=== PATIENT | male | born 1985 | race Caucasian/White ===

== ENCOUNTER → 2019-01-01 | Outpatient (REF) | payer BC | LOC: M LAB REF 16:57 | PROVIDERS: ATTEND Physician Assistant Medical | DX: R19.7 Diarrhea, unspecified (principal) ==

== ENCOUNTER 2019-11-22 13:36 | Emergency (ER) | payer BC ==
[~2019-11-22] VITALS: Ht 188 cm; Wt 138.6 kg
[2019-11-22 13:37] VITALS: BP 141/77
[2019-11-22 14:11] LABS: BASO # 0.1 10^3/uL (0.0-0.2); BASO % 0.8 % (0.0-1.0); EOS # 0.2 10^3/uL (0.0-0.5); EOS % 2.4 % (0.0-3.0); HEMATOCRIT 45.1 % (42.0-52.0); HEMOGLOBIN 14.6 g/dl (13.5-17.5); LYMPH # 1.8 10^3/uL (1.5-5.0); LYMPH % 29.6 % (24.0-44.0); MEAN CORPUSCULAR HEMOGLOBIN 28.9 pg (27.0-33.0); MEAN CORPUSCULAR HGB CONC 32.4 g/dl (32.0-36.5); MEAN CORPUSCULAR VOLUME 89.1 fl (80.0-96.0); MONO # 0.5 10^3/uL (0.0-0.8); MONO % 8.1 % (0.0-5.0); NEUTROPHILS # 3.7 10^3/uL (1.5-8.5); NEUTROPHILS % 58.8 % (36.0-66.0); PLATELET COUNT, AUTOMATED 205 10^3/uL (150-450); RED BLOOD COUNT 5.06 10^6/uL (4.30-6.10); WHITE BLOOD COUNT 6.2 10^3/uL (4.0-10.0)
[2019-11-22 14:38] LABS: BLOOD UREA NITROGEN 15 MG/DL (7-18); CALCIUM LEVEL 9.5 MG/DL (8.5-10.1); CARBON DIOXIDE LEVEL 28 MEQ/L (21-32); CHLORIDE LEVEL 111 MEQ/L (98-107); CREATININE FOR GFR 0.88 MG/DL (0.70-1.30); GLOMERULAR FILTRATION RATE > 60.0 (>60); GLUCOSE, FASTING 90 MG/DL (70-100); POTASSIUM SERUM 4.5 MEQ/L (3.5-5.1); SODIUM LEVEL 144 MEQ/L (136-145)
[2019-11-22] MEDS ORDERED: FLOM0.4C39 PO (15:19)
[2019-11-22] MEDS ORDERED: KETO10TAB PO (15:19)
--- NOTE | 2019-11-23 07:29 | REP ---
CT ABDOMEN AND PELVIS WITHOUT IV OR ORAL CONTRAST: RENAL STONE PROTOCOL. HISTORY: Left flank pain. Question stone. 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 The lung bases are clear on axial CT images. The liver and spleen are normal in size homogeneous in texture. There is an accessory splenule inferiorly. No adrenal lesion is seen. No abnormality is noted in the pancreas. The gallbladder is small and contracted but otherwise unremarkable. The kidneys are morphologically intact. No hydronephrosis is seen. There is no discernible intrarenal calculus. However, there is evidence of a calculus in the distal ureter, 2-3 cm above the ureterovesical junction. There is periureteral edema at the level of the stone. The stone measures 4.3 mm in greatest diameter. There is minimal fullness in the distal ureter above the stone. No other ureteral calculus is observed. No bladder calculus is seen. A normal appendix is seen in the right lower abdomen. Small and large intestinal bowel loops are unremarkable. No abdominal wall defect is seen. No bony destructive lesion. IMPRESSION: There is a 4 mm calculus in the left distal ureter, 2-3 cm above the ureterovesical junction. There is no evidence of upper tract hydronephrosis. No other urinary tract calculus is seen. Electronically Signed by Saul Berkowitz MD 11/23/2019 08:53 A
== END 2019-11-22 15:35 | disposition home or self-care (01) ==
LOC: M ED 13:36
DX: N21.1 Calculus in urethra (principal)

== ENCOUNTER 2024-07-08 10:09 | Inpatient (IN) | payer OTHER ==
[~2024-07-08] VITALS: Ht 185.4 cm; Wt 162.2 kg
[2024-07-08] VITALS (7 sets, daily range): BP systolic 127–161; BP diastolic 81–87; TEMP 97.3–97.7; O2SAT 96–99
[~2024-07-08 10:09] MED LIST: FLOM0.4C39 PO; KETO10TAB PO
[2024-07-08] MEDS: ONDANSETRON 4MG 2ML VIAL IV ONE (11:50)
[2024-07-08] MEDS: NS 1,000 ML IV ONE (11:50)
[2024-07-08] MEDS: MORPHINE 4 MG/ML 1ML VIAL IV ONE (11:51)
[2024-07-08 11:55] LABS: BASO % 0.4 % (0.0-1.0); EOS # 0.1 10^3/uL (0.0-0.5); HEMATOCRIT 35.7 % (42.0-52.0); HEMOGLOBIN 12.4 g/dl (13.5-17.5); LYMPH # 1.6 10^3/uL (1.5-5.0); LYMPH % 15.7 % (24.0-44.0); MEAN CORPUSCULAR HEMOGLOBIN 30.2 pg (27.0-33.0); MEAN CORPUSCULAR HGB CONC 34.7 g/dl (32.0-36.5); MEAN CORPUSCULAR VOLUME 86.9 fl (80.0-96.0); MONO # 0.9 10^3/uL (0.0-0.8); NEUTROPHILS # 7.6 10^3/uL (1.5-8.5); NEUTROPHILS % 73.6 % (36.0-66.0); PLATELET COUNT, AUTOMATED 243 10^3/uL (150-450); RED BLOOD COUNT 4.11 10^6/uL (4.30-6.10); WHITE BLOOD COUNT 10.3 10^3/uL (4.0-10.0)
[2024-07-08 12:27] LABS: ALBUMIN 3.8 G/DL (3.2-5.2); BILIRUBIN,DIRECT 0.4 MG/DL (<0.4); TOTAL PROTEIN 6.2 G/DL (5.7-8.2)
[2024-07-08] MEDS ORDERED: MORPHINE 2 MG/ML 1ML VIAL IV PRN ×3 (12:50→16:50)
[2024-07-08] MEDS ORDERED: LIDOCAINE 2% 100MG/5ML SDV (FOR ANES.) As Ordered ONE (13:15)
[2024-07-08] MEDS ORDERED: MIDAZOLAM INJ 2MG/2ML VIAL As Ordered ONE (13:15)
[2024-07-08] MEDS ORDERED: propofoL 200 MG/20 ML VIAL As Ordered ONE (13:16)
[2024-07-08] MEDS ORDERED: fentaNYL 100 MCG/2 ML INJECTION As Ordered ONE (13:16)
[2024-07-08 13:21] LABS: INR 1.09; PARTIAL THROMBOPLASTIN TIME 27.4 SECONDS (24.8-34.2); PROTHROMBIN TIME 13.8 SECONDS (12.5-14.5)
[2024-07-08] MEDS ORDERED: HOME MED LIST COMPLETE! XX SCH (13:25)
[2024-07-08] MEDS ORDERED: ONDANSETRON 4MG 2ML VIAL IV PRN (13:40)
[2024-07-08 13:49] LABS: BILIRUBIN,TOTAL 1.1 MG/DL (0.3-1.2); CALCIUM LEVEL 10.5 MG/DL (8.5-10.1); CREATININE FOR GFR 11.06 MG/DL (0.70-1.30); GLOMERULAR FILTRATION RATE 5.5 (>60); POTASSIUM SERUM 3.4 MMOL/L (3.5-5.1); TOTAL PROTEIN 6.6 G/DL (5.7-8.2)
[2024-07-08] MEDS ORDERED: ONDANSETRON 4MG 2ML VIAL As Ordered ONE (13:53)
[2024-07-08] MEDS ORDERED: METOCLOPRAMIDE INJ 10MG/2ML VIAL As Ordered ONE (13:53)
[2024-07-08] MEDS ORDERED: ACETAMINOPHEN 1000MG 100ML IV BAG As Ordered ONE (14:22)
[2024-07-08] MEDS: ISOVUE-300 61% 100ML VIAL As Ordered ONE (14:28)
[2024-07-08] MEDS: NS 1,000 ML IV SCH (15:34)
[2024-07-08] MEDS: NICOTINE 14 MG/24 HR TRANSDERMAL TD SCH (15:38)
[2024-07-08] MEDS: PANTOPRAZOLE 40MG VIAL IV SCH (15:43)
[2024-07-08] MEDS: cefTRIAXone SOD 1 GM in D5W MINI-BAG PLUS 50 ML IV SCH (15:43)
[2024-07-09 04:00] VITALS: BP 124/78; TEMP 97.2; O2SAT 95
[2024-07-09 05:59] LABS: HEMATOCRIT 36.6 % (42.0-52.0); HEMOGLOBIN 12.9 g/dl (13.5-17.5); MEAN CORPUSCULAR HEMOGLOBIN 30.8 pg (27.0-33.0); MEAN CORPUSCULAR HGB CONC 35.2 g/dl (32.0-36.5); MEAN CORPUSCULAR VOLUME 87.4 fl (80.0-96.0); PLATELET COUNT, AUTOMATED 247 10^3/uL (150-450); RED BLOOD COUNT 4.19 10^6/uL (4.30-6.10); WHITE BLOOD COUNT 6.2 10^3/uL (4.0-10.0)
[2024-07-09 06:25] LABS: ALBUMIN 3.7 G/DL (3.2-5.2); BILIRUBIN,TOTAL 0.7 MG/DL (0.3-1.2); CALCIUM LEVEL 10.4 MG/DL (8.5-10.1); CREATININE FOR GFR 5.58 MG/DL (0.70-1.30); GLOMERULAR FILTRATION RATE 12.1 (>60); POTASSIUM SERUM 3.5 MMOL/L (3.5-5.1); TOTAL PROTEIN 6.4 G/DL (5.7-8.2)
[2024-07-09] MEDS ORDERED: PERCOCET 5MG/325MG TAB PO PRN (07:25)
[2024-07-09 08:00] VITALS: BP 137/95; TEMP 97.5; O2SAT 96
[2024-07-09 12:00] VITALS: BP 140/82; TEMP 97.7; O2SAT 96
[2024-07-09 20:34] VITALS: BP 130/89; TEMP 97.9; O2SAT 97
[2024-07-09 23:24] VITALS: BP 139/78; TEMP 97.7; O2SAT 98
[2024-07-10 04:04] VITALS: BP 98/54; TEMP 97.3; O2SAT 93
[2024-07-10 05:09] LABS: HEMATOCRIT 37.9 % (42.0-52.0); HEMOGLOBIN 13.2 g/dl (13.5-17.5); MEAN CORPUSCULAR HEMOGLOBIN 29.9 pg (27.0-33.0); MEAN CORPUSCULAR HGB CONC 34.8 g/dl (32.0-36.5); MEAN CORPUSCULAR VOLUME 85.7 fl (80.0-96.0); PLATELET COUNT, AUTOMATED 286 10^3/uL (150-450); RED BLOOD COUNT 4.42 10^6/uL (4.30-6.10); WHITE BLOOD COUNT 7.4 10^3/uL (4.0-10.0)
[2024-07-10 05:32] LABS: ALBUMIN 3.6 G/DL (3.2-5.2); BILIRUBIN,TOTAL 0.6 MG/DL (0.3-1.2); CALCIUM LEVEL 9.7 MG/DL (8.5-10.1); CREATININE FOR GFR 2.07 MG/DL (0.70-1.30); GLOMERULAR FILTRATION RATE 38.1 (>60); POTASSIUM SERUM 3.1 MMOL/L (3.5-5.1); TOTAL PROTEIN 6.3 G/DL (5.7-8.2)
[2024-07-10 05:48] VITALS: BP 103/58
[2024-07-10] MEDS: POTASSIUM CHLORIDE 10MEQ SR TABLET PO SCH (08:44)
[2024-07-10 12:00] VITALS: BP 134/88; TEMP 97.9; O2SAT 95
[2024-07-10] MEDS: traMADol 50 MG TAB PO PRN (15:11)
[2024-07-10 19:23] VITALS: BP 130/88; TEMP 97.9; O2SAT 96
[2024-07-11 04:00] VITALS: BP 116/67; TEMP 98.1; O2SAT 100
[2024-07-11 05:35] LABS: HEMATOCRIT 39.2 % (42.0-52.0); HEMOGLOBIN 13.6 g/dl (13.5-17.5); MEAN CORPUSCULAR HEMOGLOBIN 30.2 pg (27.0-33.0); MEAN CORPUSCULAR HGB CONC 34.7 g/dl (32.0-36.5); MEAN CORPUSCULAR VOLUME 87.1 fl (80.0-96.0); PLATELET COUNT, AUTOMATED 279 10^3/uL (150-450); WHITE BLOOD COUNT 7.4 10^3/uL (4.0-10.0)
[2024-07-11 05:59] LABS: ALBUMIN 3.6 G/DL (3.2-5.2); ALKALINE PHOSPHATASE 49 U/L (46-116); ALT/SGPT 36 U/L (7.0-40); AST/SGOT 16 U/L (<34); BILIRUBIN,TOTAL 0.4 MG/DL (0.3-1.2); BLOOD UREA NITROGEN 16 MG/DL (9-23); CALCIUM LEVEL 9.4 MG/DL (8.5-10.1); CARBON DIOXIDE LEVEL 28 MMOL/L (20-31); CHLORIDE LEVEL 109 MMOL/L (98-107); CREATININE FOR GFR 1.31 MG/DL (0.70-1.30); GLOMERULAR FILTRATION RATE > 60.0 (>60); GLUCOSE, FASTING 103 MG/DL (60-100); POTASSIUM SERUM 3.3 MMOL/L (3.5-5.1); SODIUM LEVEL 142 MMOL/L (136-145)
[2024-07-11] MEDS ORDERED: ACET325C5 PO (07:26)
[2024-07-11] MEDS ORDERED: OXYB5TAB14 PO (09:08)
== END 2024-07-11 11:59 | disposition home or self-care (01) | DRG 661 ==
LOC: M ED 10:09 → M ED INP 12:48 → M MSPAV 15:18
PROVIDERS: ADMIT Internal Medicine; ATTEND Internal Medicine
PROC: 0T788DZ Dilation of Bilateral Ureters with Intraluminal Device, Via Natural or Artificial Opening Endoscopic (ICD-10-PCS; principal; 2024-07-08 13:00)
DX: N13.2 Hydronephrosis with renal and ureteral calculous obstruction (principal); N17.9 Acute kidney failure, unspecified; E66.9 Obesity, unspecified; F17.200 Nicotine dependence, unspecified, uncomplicated; E83.52 Hypercalcemia